=== PATIENT | male | born 1945 | race Caucasian/White ===

== ENCOUNTER 2018-04-01 11:52 | Inpatient (IN) | payer MEDICARE ==
[~2018-04-01] VITALS: Ht 172.7 cm; Wt 59.5 kg
[~2018-04-01 11:52] MED LIST: APIX5TAB PO; ATOR40TA78 PO; FURO20TA3 PO; METO25TA35 PO; RISP1TAB45 PO; SENNA/DOCUSATE TABLET PO SCH
[2018-04-01 12:38] VITALS: BP 127/75
[2018-04-01] MEDS ORDERED: POLYETHYLENE GLYCOL 17 GM PACKET NG PRN (14:00)
[2018-04-01] MEDS ORDERED: ONDANSETRON ODT 4 MG PO PRN (14:00)
[2018-04-01] MEDS ORDERED: DOCUSATE 100 MG CAPSULE PO PRN (14:00)
[2018-04-01] MEDS ORDERED: ALUMINUM/MAG/SIMETHICONE 30 ML UDC PO PRN (14:00)
[2018-04-01] MEDS ORDERED: ACETAMINOPHEN 325 MG TABLET PO PRN (14:00)
[2018-04-01] MEDS: METOPROLOL TARTRATE 25 MG TABLET PO SCH (18:09)
[2018-04-01 19:40] VITALS: BP 102/61
[2018-04-01] MEDS: APIXABAN 5 MG TABLET PO SCH (20:46)
[2018-04-01] MEDS: OLANZAPINE 2.5 MG TABLET PO SCH (20:46)
[2018-04-01] MEDS: ATORVASTATIN 40 MG TABLET PO SCH (20:46)
[2018-04-01] MEDS ORDERED: RISPERIDONE 1 MG TABLET PO SCH (21:00)
[2018-04-02] MEDS: METOPROLOL TARTRATE 25 MG TABLET PO SCH ×2 (05:59→18:02)
[2018-04-02 08:00] VITALS: BP 120/82
[2018-04-02] MEDS: APIXABAN 5 MG TABLET PO SCH ×2 (09:27→20:36)
[2018-04-02] MEDS: FUROSEMIDE 20 MG TABLET PO SCH (09:27)
[2018-04-02 19:33] VITALS: BP 92/63
[2018-04-02] MEDS: OLANZAPINE 2.5 MG TABLET PO SCH (20:34)
[2018-04-02] MEDS: ATORVASTATIN 40 MG TABLET PO SCH (20:34)
[2018-04-03 08:18] VITALS: BP 116/74
[2018-04-03] MEDS: APIXABAN 5 MG TABLET PO SCH (08:27)
[2018-04-03] MEDS: METOPROLOL TARTRATE 25 MG TABLET PO SCH ×2 (08:27→20:44)
[2018-04-03] MEDS: FUROSEMIDE 20 MG TABLET PO SCH (08:27)
[2018-04-03 20:00] VITALS: BP 105/64
[2018-04-03] MEDS: ATORVASTATIN 40 MG TABLET PO SCH (20:43)
[2018-04-03] MEDS ORDERED: OLANZAPINE 5 MG TABLET PO SCH (21:00)
[2018-04-04 07:30] VITALS: BP 98/58
[2018-04-04] MEDS: FUROSEMIDE 20 MG TABLET PO SCH (08:25)
[2018-04-04] MEDS: METOPROLOL TARTRATE 25 MG TABLET PO SCH ×2 (08:25→17:42)
[2018-04-04 19:49] VITALS: BP 101/55
[2018-04-04] MEDS: ATORVASTATIN 40 MG TABLET PO SCH (20:36)
[2018-04-04] MEDS: OLANZAPINE 10 MG TABLET PO SCH (20:36)
[2018-04-05 07:52] VITALS: BP 102/53
[2018-04-05] MEDS: METOPROLOL TARTRATE 25 MG TABLET PO SCH ×2 (08:27→20:15)
[2018-04-05] MEDS: FUROSEMIDE 20 MG TABLET PO SCH (08:27)
[2018-04-05 19:50] VITALS: BP 121/70
[2018-04-05] MEDS: ATORVASTATIN 40 MG TABLET PO SCH (20:15)
[2018-04-05] MEDS: OLANZAPINE 10 MG TABLET PO SCH (20:16)
[2018-04-06] MEDS: METOPROLOL TARTRATE 25 MG TABLET PO SCH ×2 (07:38→18:12)
[2018-04-06] MEDS: FUROSEMIDE 20 MG TABLET PO SCH (07:39)
[2018-04-06 07:52] VITALS: BP 107/67
[2018-04-06] MEDS ORDERED: FENTANYL PF 100 MCG/2ML ONE (11:41)
[2018-04-06] MEDS ORDERED: MIDAZOLAM 1 MG/ML, 2ML ONE (11:41)
[2018-04-06] MEDS ORDERED: CEFAZOLIN 1,000 MG ONE (11:41)
[2018-04-06] MEDS ORDERED: CEFAZOLIN PMX 1GM/50ML 50 ML ONE (11:41)
[2018-04-06] MEDS ORDERED: LIDOCAINE/PF 1%, 30ML ONE (11:42)
[2018-04-06 14:12] VITALS: BP 110/69
[2018-04-06 15:50] LABS: MICROSCOPIC NOT IND
[2018-04-06 16:03] LABS: CULTURE INDICATED? NO
[2018-04-06] MEDS: CEPHALEXIN 500 MG CAPSULE PO SCH ×2 (16:49→20:54)
[2018-04-06 18:06] VITALS: BP 143/85
[2018-04-06 19:42] VITALS: BP 86/43
[2018-04-06 19:59] VITALS: BP 127/70
[2018-04-06] MEDS: OLANZAPINE 10 MG TABLET PO SCH (20:53)
[2018-04-06] MEDS: ATORVASTATIN 40 MG TABLET PO SCH (20:54)
[2018-04-06] MEDS: HYDROcodone/APAP 5/325 TABLET PO PRN ×3 (21:01→23:01)
[2018-04-07] MEDS: METOPROLOL TARTRATE 25 MG TABLET PO SCH ×2 (06:01→18:01)
[2018-04-07 07:30] VITALS: BP 123/71
[2018-04-07] MEDS: FUROSEMIDE 20 MG TABLET PO SCH (09:03)
[2018-04-07] MEDS: HYDROcodone/APAP 5/325 TABLET PO PRN ×2 (09:03→21:32)
[2018-04-07] MEDS: CEPHALEXIN 500 MG CAPSULE PO SCH (09:03)
[2018-04-07 19:43] VITALS: BP 93/56
[2018-04-07] MEDS: OLANZAPINE 10 MG TABLET PO SCH (21:00)
[2018-04-07] MEDS: DIVALPROEX 250 MG TABLET.DR PO SCH (21:00)
[2018-04-07] MEDS: ATORVASTATIN 40 MG TABLET PO SCH (21:28)
[2018-04-08 07:59] VITALS: BP 148/82
[2018-04-08] MEDS: METOPROLOL TARTRATE 25 MG TABLET PO SCH ×2 (08:59→20:28)
[2018-04-08] MEDS: FUROSEMIDE 20 MG TABLET PO SCH (08:59)
[2018-04-08] MEDS: APIXABAN 5 MG TABLET PO SCH ×2 (10:39→20:27)
[2018-04-08 20:13] VITALS: BP 127/80
[2018-04-08] MEDS: DIVALPROEX 250 MG TABLET.DR PO SCH (20:27)
[2018-04-08] MEDS: ATORVASTATIN 40 MG TABLET PO SCH (20:27)
[2018-04-08] MEDS: OLANZAPINE 10 MG TABLET PO SCH (20:28)
[2018-04-09 07:57] VITALS: BP 122/67
[2018-04-09] MEDS: APIXABAN 5 MG TABLET PO SCH ×2 (08:44→20:37)
[2018-04-09] MEDS: FUROSEMIDE 20 MG TABLET PO SCH (08:44)
[2018-04-09] MEDS: METOPROLOL TARTRATE 25 MG TABLET PO SCH ×2 (08:45→20:37)
[2018-04-09 19:35] VITALS: BP 111/59
[2018-04-09] MEDS: OLANZAPINE 10 MG TABLET PO SCH (20:37)
[2018-04-09] MEDS: ATORVASTATIN 40 MG TABLET PO SCH (20:38)
[2018-04-09] MEDS: DIVALPROEX 250 MG TABLET.DR PO SCH (20:38)
[2018-04-10 07:30] VITALS: BP 98/65
[2018-04-10] MEDS: METOPROLOL TARTRATE 25 MG TABLET PO SCH ×2 (09:13→20:11)
[2018-04-10] MEDS: APIXABAN 5 MG TABLET PO SCH ×2 (09:13→20:10)
[2018-04-10] MEDS: FUROSEMIDE 20 MG TABLET PO SCH (09:14)
[2018-04-10 19:41] VITALS: BP 103/56
[2018-04-10] MEDS: ATORVASTATIN 40 MG TABLET PO SCH (20:10)
[2018-04-10] MEDS: DIVALPROEX 250 MG TABLET.DR PO SCH (20:10)
[2018-04-10] MEDS: OLANZAPINE 10 MG TABLET PO SCH (20:11)
[2018-04-11 08:42] VITALS: BP 127/82
[2018-04-11] MEDS: FUROSEMIDE 20 MG TABLET PO SCH (08:43)
[2018-04-11] MEDS: METOPROLOL TARTRATE 25 MG TABLET PO SCH ×2 (08:43→20:22)
[2018-04-11] MEDS: APIXABAN 5 MG TABLET PO SCH ×2 (08:43→20:21)
[2018-04-11 19:21] VITALS: BP 91/63
[2018-04-11] MEDS: ATORVASTATIN 40 MG TABLET PO SCH (20:21)
[2018-04-11] MEDS: DIVALPROEX 250 MG TABLET.DR PO SCH (20:22)
[2018-04-11] MEDS: OLANZAPINE 10 MG TABLET PO SCH (20:22)
[2018-04-12] MEDS: METOPROLOL TARTRATE 25 MG TABLET PO SCH ×2 (08:05→21:02)
[2018-04-12] MEDS: FUROSEMIDE 20 MG TABLET PO SCH (08:05)
[2018-04-12] MEDS: APIXABAN 5 MG TABLET PO SCH ×2 (08:05→21:02)
[2018-04-12 19:13] VITALS: BP 105/70
[2018-04-12] MEDS: DIVALPROEX 250 MG TABLET.DR PO SCH (21:01)
[2018-04-12] MEDS: OLANZAPINE 10 MG TABLET PO SCH (21:02)
[2018-04-12] MEDS: ATORVASTATIN 40 MG TABLET PO SCH (21:03)
[2018-04-13 07:16] VITALS: BP 116/74
[2018-04-13] MEDS: METOPROLOL TARTRATE 25 MG TABLET PO SCH ×2 (09:32→20:23)
[2018-04-13] MEDS: FUROSEMIDE 20 MG TABLET PO SCH (09:32)
[2018-04-13] MEDS: APIXABAN 5 MG TABLET PO SCH ×2 (09:32→20:22)
[2018-04-13 19:11] VITALS: BP 111/69
[2018-04-13] MEDS: DIVALPROEX 250 MG TABLET.DR PO SCH (20:22)
[2018-04-13] MEDS: ATORVASTATIN 40 MG TABLET PO SCH (20:22)
[2018-04-13] MEDS: OLANZAPINE 10 MG TABLET PO SCH (20:23)
[2018-04-14 07:30] VITALS: BP 124/72
[2018-04-14] MEDS: APIXABAN 5 MG TABLET PO SCH ×2 (08:34→20:58)
[2018-04-14] MEDS: FUROSEMIDE 20 MG TABLET PO SCH (08:35)
[2018-04-14] MEDS: METOPROLOL TARTRATE 25 MG TABLET PO SCH ×2 (08:35→21:00)
[2018-04-14 19:28] VITALS: BP 103/64
[2018-04-14] MEDS: DIVALPROEX 250 MG TABLET.DR PO SCH (20:58)
[2018-04-14] MEDS: OLANZAPINE 10 MG TABLET PO SCH (20:58)
[2018-04-14] MEDS: ATORVASTATIN 40 MG TABLET PO SCH (21:00)
[2018-04-15 07:40] VITALS: BP_SYST 107
[2018-04-15] MEDS: APIXABAN 5 MG TABLET PO SCH ×2 (08:53→20:50)
[2018-04-15] MEDS: METOPROLOL TARTRATE 25 MG TABLET PO SCH ×2 (08:53→20:51)
[2018-04-15] MEDS: FUROSEMIDE 20 MG TABLET PO SCH (08:54)
[2018-04-15 19:13] VITALS: BP 109/67
[2018-04-15] MEDS: DIVALPROEX 250 MG TABLET.DR PO SCH (20:49)
[2018-04-15] MEDS: ATORVASTATIN 40 MG TABLET PO SCH (20:50)
[2018-04-15] MEDS: OLANZAPINE 10 MG TABLET PO SCH (20:54)
[2018-04-16 07:30] VITALS: BP 135/83
[2018-04-16] MEDS: METOPROLOL TARTRATE 25 MG TABLET PO SCH ×2 (08:19→20:56)
[2018-04-16] MEDS: APIXABAN 5 MG TABLET PO SCH ×2 (08:19→20:56)
[2018-04-16] MEDS: FUROSEMIDE 20 MG TABLET PO SCH (08:19)
[2018-04-16 19:20] VITALS: BP 100/50
[2018-04-16] MEDS: OLANZAPINE 10 MG TABLET PO SCH (20:55)
[2018-04-16] MEDS: ATORVASTATIN 40 MG TABLET PO SCH (20:55)
[2018-04-16] MEDS: DIVALPROEX 250 MG TABLET.DR PO SCH (20:56)
[2018-04-17 07:30] VITALS: BP 137/71
[2018-04-17] MEDS: METOPROLOL TARTRATE 25 MG TABLET PO SCH ×2 (08:17→20:23)
[2018-04-17] MEDS: APIXABAN 5 MG TABLET PO SCH ×2 (08:17→20:23)
[2018-04-17] MEDS: FUROSEMIDE 20 MG TABLET PO SCH (08:17)
[2018-04-17 19:17] VITALS: BP 114/75
[2018-04-17] MEDS: OLANZAPINE 10 MG TABLET PO SCH (20:22)
[2018-04-17] MEDS: ATORVASTATIN 40 MG TABLET PO SCH (20:23)
[2018-04-17] MEDS: DIVALPROEX 250 MG TABLET.DR PO SCH (20:24)
[2018-04-18 07:30] VITALS: BP 118/78
[2018-04-18] MEDS: APIXABAN 5 MG TABLET PO SCH ×2 (08:25→20:20)
[2018-04-18] MEDS: METOPROLOL TARTRATE 25 MG TABLET PO SCH ×2 (08:26→20:28)
[2018-04-18] MEDS: FUROSEMIDE 20 MG TABLET PO SCH (08:26)
[2018-04-18 19:13] VITALS: BP 89/63
[2018-04-18] MEDS: DIVALPROEX 250 MG TABLET.DR PO SCH (20:19)
[2018-04-18] MEDS: ATORVASTATIN 40 MG TABLET PO SCH (20:19)
[2018-04-18] MEDS: OLANZAPINE 10 MG TABLET PO SCH (20:20)
[2018-04-19 07:50] VITALS: BP 130/85
[2018-04-19] MEDS: APIXABAN 5 MG TABLET PO SCH ×2 (08:31→20:57)
[2018-04-19] MEDS: METOPROLOL TARTRATE 25 MG TABLET PO SCH ×2 (08:32→20:57)
[2018-04-19] MEDS: FUROSEMIDE 20 MG TABLET PO SCH (08:32)
[2018-04-19 19:27] VITALS: BP 111/77
[2018-04-19] MEDS: DIVALPROEX 250 MG TABLET.DR PO SCH (20:56)
[2018-04-19] MEDS: ATORVASTATIN 40 MG TABLET PO SCH (20:57)
[2018-04-19] MEDS: OLANZAPINE 10 MG TABLET PO SCH (20:57)
[2018-04-20 07:39] VITALS: BP 130/85
[2018-04-20] MEDS: FUROSEMIDE 20 MG TABLET PO SCH (08:06)
[2018-04-20] MEDS: METOPROLOL TARTRATE 25 MG TABLET PO SCH ×2 (08:06→21:16)
[2018-04-20] MEDS: APIXABAN 5 MG TABLET PO SCH ×2 (08:06→21:15)
[2018-04-20 19:05] VITALS: BP 106/70
[2018-04-20] MEDS: OLANZAPINE 10 MG TABLET PO SCH (21:15)
[2018-04-20] MEDS: DIVALPROEX 250 MG TABLET.DR PO SCH (21:16)
[2018-04-20] MEDS: ATORVASTATIN 40 MG TABLET PO SCH (21:16)
[2018-04-21 07:43] VITALS: BP 93/56
[2018-04-21] MEDS: APIXABAN 5 MG TABLET PO SCH ×2 (09:27→20:46)
[2018-04-21] MEDS: FUROSEMIDE 20 MG TABLET PO SCH (09:27)
[2018-04-21] MEDS: METOPROLOL TARTRATE 25 MG TABLET PO SCH ×2 (09:28→20:47)
[2018-04-21] MEDS: OLANZAPINE 5 MG TABLET PO SCH (11:45)
[2018-04-21 19:16] VITALS: BP 100/61
[2018-04-21] MEDS: ATORVASTATIN 40 MG TABLET PO SCH (20:46)
[2018-04-21] MEDS: OLANZAPINE 10 MG TABLET PO SCH (20:46)
[2018-04-21] MEDS: DIVALPROEX 250 MG TABLET.DR PO SCH (20:46)
[2018-04-22 07:21] VITALS: BP 124/81
[2018-04-22] MEDS: METOPROLOL TARTRATE 25 MG TABLET PO SCH ×2 (08:16→20:36)
[2018-04-22] MEDS: APIXABAN 5 MG TABLET PO SCH ×2 (08:16→20:36)
[2018-04-22] MEDS: FUROSEMIDE 20 MG TABLET PO SCH (08:16)
[2018-04-22] MEDS: OLANZAPINE 5 MG TABLET PO SCH (11:29)
[2018-04-22 19:14] VITALS: BP 128/77
[2018-04-22] MEDS: ATORVASTATIN 40 MG TABLET PO SCH (20:35)
[2018-04-22] MEDS: DIVALPROEX 250 MG TABLET.DR PO SCH (20:36)
[2018-04-22] MEDS: OLANZAPINE 10 MG TABLET PO SCH (20:36)
[2018-04-23 07:31] VITALS: BP 130/79
[2018-04-23] MEDS: METOPROLOL TARTRATE 25 MG TABLET PO SCH ×2 (08:39→20:13)
[2018-04-23] MEDS: APIXABAN 5 MG TABLET PO SCH ×2 (08:40→20:18)
[2018-04-23] MEDS: FUROSEMIDE 20 MG TABLET PO SCH (08:40)
[2018-04-23] MEDS: OLANZAPINE 5 MG TABLET PO SCH (12:22)
[2018-04-23 19:23] VITALS: BP 119/70
[2018-04-23] MEDS: DIVALPROEX 250 MG TABLET.DR PO SCH (20:18)
[2018-04-23] MEDS: ATORVASTATIN 40 MG TABLET PO SCH (20:18)
[2018-04-23] MEDS: OLANZAPINE 10 MG TABLET PO SCH (20:18)
[2018-04-24 07:38] VITALS: BP 123/70
[2018-04-24] MEDS: FUROSEMIDE 20 MG TABLET PO SCH (09:15)
[2018-04-24] MEDS: APIXABAN 5 MG TABLET PO SCH ×2 (09:16→20:24)
[2018-04-24] MEDS: METOPROLOL TARTRATE 25 MG TABLET PO SCH ×2 (09:16→20:25)
[2018-04-24] MEDS: OLANZAPINE 5 MG TABLET PO SCH (12:07)
[2018-04-24 19:25] VITALS: BP 116/57
[2018-04-24] MEDS: OLANZAPINE 10 MG TABLET PO SCH (20:24)
[2018-04-24] MEDS: DIVALPROEX 250 MG TABLET.DR PO SCH (20:24)
[2018-04-24] MEDS: ATORVASTATIN 40 MG TABLET PO SCH (20:24)
[2018-04-25 07:46] VITALS: BP 100/60
[2018-04-25] MEDS: APIXABAN 5 MG TABLET PO SCH ×2 (08:30→20:47)
[2018-04-25] MEDS: METOPROLOL TARTRATE 25 MG TABLET PO SCH ×2 (08:31→20:47)
[2018-04-25] MEDS: FUROSEMIDE 20 MG TABLET PO SCH (08:31)
[2018-04-25] MEDS: OLANZAPINE 5 MG TABLET PO SCH (13:38)
[2018-04-25 19:38] VITALS: BP 112/75
[2018-04-25] MEDS: OLANZAPINE 10 MG TABLET PO SCH (20:47)
[2018-04-25] MEDS: ATORVASTATIN 40 MG TABLET PO SCH (20:48)
[2018-04-25] MEDS: DIVALPROEX 250 MG TABLET.DR PO SCH (20:48)
[2018-04-26 07:34] VITALS: BP 114/70
[2018-04-26] MEDS: FUROSEMIDE 20 MG TABLET PO SCH (08:26)
[2018-04-26] MEDS: METOPROLOL TARTRATE 25 MG TABLET PO SCH ×2 (08:27→21:24)
[2018-04-26] MEDS: APIXABAN 5 MG TABLET PO SCH ×2 (08:27→21:22)
[2018-04-26] MEDS: OLANZAPINE 5 MG TABLET PO SCH (12:58)
[2018-04-26 19:40] VITALS: BP 125/67
[2018-04-26] MEDS: DIVALPROEX 250 MG TABLET.DR PO SCH (21:22)
[2018-04-26] MEDS: OLANZAPINE 10 MG TABLET PO SCH (21:23)
[2018-04-26] MEDS: ATORVASTATIN 40 MG TABLET PO SCH (21:23)
[2018-04-27 07:58] VITALS: BP 107/73
[2018-04-27] MEDS: APIXABAN 5 MG TABLET PO SCH ×2 (08:36→20:41)
[2018-04-27] MEDS: METOPROLOL TARTRATE 25 MG TABLET PO SCH ×2 (08:36→20:42)
[2018-04-27] MEDS: FUROSEMIDE 20 MG TABLET PO SCH (08:36)
[2018-04-27] MEDS: OLANZAPINE 5 MG TABLET PO SCH (11:38)
[2018-04-27 19:31] VITALS: BP 124/86
[2018-04-27] MEDS: OLANZAPINE 10 MG TABLET PO SCH (20:41)
[2018-04-27] MEDS: DIVALPROEX 250 MG TABLET.DR PO SCH (20:41)
[2018-04-27] MEDS: ATORVASTATIN 40 MG TABLET PO SCH (20:42)
[2018-04-28 07:44] VITALS: BP 126/80
[2018-04-28] MEDS: FUROSEMIDE 20 MG TABLET PO SCH (09:46)
[2018-04-28] MEDS: VENLAFAXINE 75 MG CAP ER PO SCH (09:46)
[2018-04-28] MEDS: METOPROLOL TARTRATE 25 MG TABLET PO SCH ×2 (09:46→20:08)
[2018-04-28] MEDS: APIXABAN 5 MG TABLET PO SCH ×2 (09:46→20:08)
[2018-04-28] MEDS: OLANZAPINE 5 MG TABLET PO SCH (12:47)
[2018-04-28 20:02] VITALS: BP 119/80
[2018-04-28] MEDS: OLANZAPINE 10 MG TABLET PO SCH (20:08)
[2018-04-28] MEDS: DIVALPROEX 250 MG TABLET.DR PO SCH (20:08)
[2018-04-28] MEDS: ATORVASTATIN 40 MG TABLET PO SCH (20:08)
[2018-04-29 08:03] VITALS: BP 122/77
[2018-04-29] MEDS: METOPROLOL TARTRATE 25 MG TABLET PO SCH ×2 (09:03→20:21)
[2018-04-29] MEDS: APIXABAN 5 MG TABLET PO SCH ×2 (09:03→20:22)
[2018-04-29] MEDS: VENLAFAXINE 75 MG CAP ER PO SCH (09:03)
[2018-04-29] MEDS: FUROSEMIDE 20 MG TABLET PO SCH (09:03)
[2018-04-29] MEDS: OLANZAPINE 5 MG TABLET PO SCH (13:50)
[2018-04-29] MEDS: ATORVASTATIN 40 MG TABLET PO SCH (20:21)
[2018-04-29] MEDS: DIVALPROEX 250 MG TABLET.DR PO SCH (20:21)
[2018-04-29] MEDS: MELATONIN 3 MG TABLET PO SCH (20:22)
[2018-04-29] MEDS: OLANZAPINE 10 MG TABLET PO SCH (20:22)
[2018-04-29 20:26] VITALS: BP 123/87
[2018-04-30 07:29] VITALS: BP 129/79
[2018-04-30] MEDS: VENLAFAXINE 75 MG CAP ER PO SCH (09:15)
[2018-04-30] MEDS: FUROSEMIDE 20 MG TABLET PO SCH (09:16)
[2018-04-30] MEDS: METOPROLOL TARTRATE 25 MG TABLET PO SCH ×2 (09:16→20:39)
[2018-04-30] MEDS: APIXABAN 5 MG TABLET PO SCH ×2 (09:16→20:37)
[2018-04-30] MEDS: OLANZAPINE 5 MG TABLET PO SCH (12:04)
[2018-04-30] MEDS: OLANZAPINE 10 MG TABLET PO SCH (20:37)
[2018-04-30] MEDS: ATORVASTATIN 40 MG TABLET PO SCH (20:37)
[2018-04-30] MEDS: DIVALPROEX 250 MG TABLET.DR PO SCH (20:37)
[2018-04-30] MEDS: MELATONIN 3 MG TABLET PO SCH (20:37)
[2018-04-30 20:42] VITALS: BP 119/72
[2018-05-01 08:04] VITALS: BP 122/77
[2018-05-01] MEDS: APIXABAN 5 MG TABLET PO SCH ×2 (09:00→09:15)
[2018-05-01] MEDS: METOPROLOL TARTRATE 25 MG TABLET PO SCH ×2 (09:15→20:39)
[2018-05-01] MEDS: FUROSEMIDE 20 MG TABLET PO SCH (09:15)
[2018-05-01] MEDS: VENLAFAXINE 75 MG CAP ER PO SCH (09:16)
[2018-05-01] MEDS: OLANZAPINE 5 MG TABLET PO SCH (12:16)
[2018-05-01 19:24] VITALS: BP 99/63
[2018-05-01] MEDS: MELATONIN 3 MG TABLET PO SCH (20:38)
[2018-05-01] MEDS: ATORVASTATIN 40 MG TABLET PO SCH (20:39)
[2018-05-01] MEDS: OLANZAPINE 10 MG TABLET PO SCH (20:39)
[2018-05-01] MEDS: DIVALPROEX 250 MG TABLET.DR PO SCH (20:39)
[2018-05-02 07:48] VITALS: BP 106/71
[2018-05-02] MEDS: VENLAFAXINE 75 MG CAP ER PO SCH (09:15)
[2018-05-02] MEDS: METOPROLOL TARTRATE 25 MG TABLET PO SCH ×2 (09:16→20:14)
[2018-05-02] MEDS: APIXABAN 5 MG TABLET PO SCH ×2 (09:16→20:14)
[2018-05-02] MEDS: FUROSEMIDE 20 MG TABLET PO SCH (09:16)
[2018-05-02] MEDS: OLANZAPINE 5 MG TABLET PO SCH (12:06)
[2018-05-02 19:23] VITALS: BP 105/60
[2018-05-02] MEDS: DIVALPROEX 250 MG TABLET.DR PO SCH (20:13)
[2018-05-02] MEDS: ATORVASTATIN 40 MG TABLET PO SCH (20:13)
[2018-05-02] MEDS: MELATONIN 3 MG TABLET PO SCH (20:13)
[2018-05-02] MEDS: OLANZAPINE 10 MG TABLET PO SCH (20:14)
[2018-05-03 07:48] VITALS: BP 125/76
[2018-05-03] MEDS: FUROSEMIDE 20 MG TABLET PO SCH (09:39)
[2018-05-03] MEDS: APIXABAN 5 MG TABLET PO SCH ×2 (09:40→20:19)
[2018-05-03] MEDS: METOPROLOL TARTRATE 25 MG TABLET PO SCH ×2 (09:40→20:18)
[2018-05-03] MEDS: VENLAFAXINE 75 MG CAP ER PO SCH (09:40)
[2018-05-03] MEDS: OLANZAPINE 5 MG TABLET PO SCH (12:55)
[2018-05-03 19:58] VITALS: BP 101/61
[2018-05-03] MEDS: DIVALPROEX 250 MG TABLET.DR PO SCH (20:19)
[2018-05-03] MEDS: MELATONIN 3 MG TABLET PO SCH (20:19)
[2018-05-03] MEDS: OLANZAPINE 10 MG TABLET PO SCH (20:19)
[2018-05-03] MEDS: ATORVASTATIN 40 MG TABLET PO SCH (20:19)
[2018-05-04 08:21] VITALS: BP 112/64
[2018-05-04] MEDS: METOPROLOL TARTRATE 25 MG TABLET PO SCH ×2 (08:48→20:39)
[2018-05-04] MEDS: FUROSEMIDE 20 MG TABLET PO SCH (08:48)
[2018-05-04] MEDS: APIXABAN 5 MG TABLET PO SCH ×2 (08:48→20:38)
[2018-05-04] MEDS: VENLAFAXINE 75 MG CAP ER PO SCH (08:48)
[2018-05-04] MEDS: OLANZAPINE 5 MG TABLET PO SCH (12:32)
[2018-05-04 19:45] VITALS: BP_SYST 108; BP_SYST 95; BP_DIAS 58; BP_DIAS 65
[2018-05-04] MEDS: DIVALPROEX 250 MG TABLET.DR PO SCH (20:37)
[2018-05-04] MEDS: ATORVASTATIN 40 MG TABLET PO SCH (20:38)
[2018-05-04] MEDS: OLANZAPINE 10 MG TABLET PO SCH (20:39)
[2018-05-04] MEDS: MELATONIN 3 MG TABLET PO SCH (20:39)
[2018-05-05 07:49] VITALS: BP 129/86
[2018-05-05] MEDS: FUROSEMIDE 20 MG TABLET PO SCH (08:11)
[2018-05-05] MEDS: VENLAFAXINE 75 MG CAP ER PO SCH (08:11)
[2018-05-05] MEDS: METOPROLOL TARTRATE 25 MG TABLET PO SCH ×2 (08:11→21:00)
[2018-05-05] MEDS: APIXABAN 5 MG TABLET PO SCH ×2 (08:11→21:00)
[2018-05-05] MEDS: OLANZAPINE 5 MG TABLET PO SCH (11:58)
[2018-05-05 19:38] VITALS: BP 112/72
[2018-05-05] MEDS: DIVALPROEX 250 MG TABLET.DR PO SCH (21:00)
[2018-05-05] MEDS: ATORVASTATIN 40 MG TABLET PO SCH (21:00)
[2018-05-05] MEDS: OLANZAPINE 10 MG TABLET PO SCH (21:00)
[2018-05-05] MEDS: MELATONIN 3 MG TABLET PO SCH (21:00)
[2018-05-06 07:35] VITALS: BP 121/70
[2018-05-06] MEDS: METOPROLOL TARTRATE 25 MG TABLET PO SCH ×2 (08:39→21:20)
[2018-05-06] MEDS: VENLAFAXINE 75 MG CAP ER PO SCH (08:39)
[2018-05-06] MEDS: FUROSEMIDE 20 MG TABLET PO SCH (08:39)
[2018-05-06] MEDS: APIXABAN 5 MG TABLET PO SCH ×2 (08:39→21:19)
[2018-05-06] MEDS: OLANZAPINE 5 MG TABLET PO SCH (11:34)
[2018-05-06 19:52] VITALS: BP 112/71
[2018-05-06] MEDS: DIVALPROEX 250 MG TABLET.DR PO SCH (21:19)
[2018-05-06] MEDS: ATORVASTATIN 40 MG TABLET PO SCH (21:19)
[2018-05-06] MEDS: OLANZAPINE 10 MG TABLET PO SCH (21:20)
[2018-05-06] MEDS: MELATONIN 3 MG TABLET PO SCH (21:20)
[2018-05-07 07:35] VITALS: BP 122/88
[2018-05-07] MEDS: VENLAFAXINE 75 MG CAP ER PO SCH (08:43)
[2018-05-07] MEDS: FUROSEMIDE 20 MG TABLET PO SCH (08:43)
[2018-05-07] MEDS: APIXABAN 5 MG TABLET PO SCH ×2 (08:43→20:17)
[2018-05-07] MEDS: METOPROLOL TARTRATE 25 MG TABLET PO SCH ×2 (08:44→20:17)
[2018-05-07] MEDS: OLANZAPINE 5 MG TABLET PO SCH (12:12)
[2018-05-07 19:35] VITALS: BP 115/69
[2018-05-07] MEDS: OLANZAPINE 10 MG TABLET PO SCH (20:16)
[2018-05-07] MEDS: ATORVASTATIN 40 MG TABLET PO SCH (20:16)
[2018-05-07] MEDS: MELATONIN 3 MG TABLET PO SCH (20:17)
[2018-05-07] MEDS: DIVALPROEX 250 MG TABLET.DR PO SCH (20:17)
[2018-05-08 07:15] VITALS: BP 133/82
[2018-05-08] MEDS: VENLAFAXINE 75 MG CAP ER PO SCH (09:12)
[2018-05-08] MEDS: APIXABAN 5 MG TABLET PO SCH ×2 (09:12→20:40)
[2018-05-08] MEDS: FUROSEMIDE 20 MG TABLET PO SCH (09:13)
[2018-05-08] MEDS: METOPROLOL TARTRATE 25 MG TABLET PO SCH ×2 (09:13→20:41)
[2018-05-08] MEDS: OLANZAPINE 5 MG TABLET PO SCH (11:49)
[2018-05-08 19:31] VITALS: BP 118/65
[2018-05-08] MEDS: DIVALPROEX 250 MG TABLET.DR PO SCH (20:40)
[2018-05-08] MEDS: ATORVASTATIN 40 MG TABLET PO SCH (20:40)
[2018-05-08] MEDS: OLANZAPINE 10 MG TABLET PO SCH (20:42)
[2018-05-08] MEDS: MELATONIN 3 MG TABLET PO SCH (20:42)
[2018-05-09 07:42] VITALS: BP 131/72
[2018-05-09] MEDS: FUROSEMIDE 20 MG TABLET PO SCH (08:27)
[2018-05-09] MEDS: APIXABAN 5 MG TABLET PO SCH ×2 (08:28→20:31)
[2018-05-09] MEDS: VENLAFAXINE 75 MG CAP ER PO SCH (08:28)
[2018-05-09] MEDS: METOPROLOL TARTRATE 25 MG TABLET PO SCH ×2 (08:28→20:32)
[2018-05-09] MEDS: OLANZAPINE 5 MG TABLET PO SCH (12:10)
[2018-05-09 20:06] VITALS: BP 121/75
[2018-05-09] MEDS: DIVALPROEX 250 MG TABLET.DR PO SCH (20:31)
[2018-05-09] MEDS: ATORVASTATIN 40 MG TABLET PO SCH (20:31)
[2018-05-09] MEDS: MELATONIN 3 MG TABLET PO SCH (20:31)
[2018-05-09] MEDS: OLANZAPINE 10 MG TABLET PO SCH (20:31)
[2018-05-10 08:33] VITALS: BP 112/76
[2018-05-10] MEDS: FUROSEMIDE 20 MG TABLET PO SCH (08:51)
[2018-05-10] MEDS: METOPROLOL TARTRATE 25 MG TABLET PO SCH ×2 (08:53→20:08)
[2018-05-10] MEDS: APIXABAN 5 MG TABLET PO SCH ×2 (08:53→20:08)
[2018-05-10] MEDS: VENLAFAXINE 75 MG CAP ER PO SCH (08:53)
[2018-05-10] MEDS: OLANZAPINE 5 MG TABLET PO SCH (12:21)
[2018-05-10 19:20] VITALS: BP 113/71
[2018-05-10] MEDS: OLANZAPINE 10 MG TABLET PO SCH (20:07)
[2018-05-10] MEDS: DIVALPROEX 250 MG TABLET.DR PO SCH (20:08)
[2018-05-10] MEDS: ATORVASTATIN 40 MG TABLET PO SCH (20:08)
[2018-05-10] MEDS: MELATONIN 3 MG TABLET PO SCH (20:08)
[2018-05-11 07:19] VITALS: BP_SYST 124; BP_SYST 99; BP_DIAS 62; BP_DIAS 76
[2018-05-11] MEDS: APIXABAN 5 MG TABLET PO SCH ×2 (08:31→20:12)
[2018-05-11] MEDS: VENLAFAXINE 75 MG CAP ER PO SCH (08:31)
[2018-05-11] MEDS: FUROSEMIDE 20 MG TABLET PO SCH (08:31)
[2018-05-11] MEDS: METOPROLOL TARTRATE 25 MG TABLET PO SCH ×2 (08:32→21:00)
[2018-05-11 08:37] VITALS: BP 101/65
[2018-05-11] MEDS: OLANZAPINE 5 MG TABLET PO SCH (11:06)
[2018-05-11 19:23] VITALS: BP 114/78
[2018-05-11] MEDS: OLANZAPINE 10 MG TABLET PO SCH (20:12)
[2018-05-11] MEDS: DIVALPROEX 250 MG TABLET.DR PO SCH (20:12)
[2018-05-11] MEDS: MELATONIN 3 MG TABLET PO SCH (20:12)
[2018-05-11] MEDS: ATORVASTATIN 40 MG TABLET PO SCH (20:12)
[2018-05-12 07:33] VITALS: BP 106/69
[2018-05-12] MEDS: VENLAFAXINE 75 MG CAP ER PO SCH (07:58)
[2018-05-12] MEDS: FUROSEMIDE 20 MG TABLET PO SCH (07:59)
[2018-05-12] MEDS: APIXABAN 5 MG TABLET PO SCH ×2 (07:59→21:18)
[2018-05-12] MEDS: METOPROLOL TARTRATE 25 MG TABLET PO SCH ×2 (08:00→21:19)
[2018-05-12] MEDS: OLANZAPINE 5 MG TABLET PO SCH (11:14)
[2018-05-12 19:39] VITALS: BP 99/67
[2018-05-12] MEDS: OLANZAPINE 10 MG TABLET PO SCH (21:18)
[2018-05-12] MEDS: DIVALPROEX 250 MG TABLET.DR PO SCH (21:18)
[2018-05-12] MEDS: MELATONIN 3 MG TABLET PO SCH (21:18)
[2018-05-12] MEDS: ATORVASTATIN 40 MG TABLET PO SCH (21:19)
[2018-05-13 07:35] VITALS: BP 114/72
[2018-05-13] MEDS: VENLAFAXINE 75 MG CAP ER PO SCH (08:51)
[2018-05-13] MEDS: METOPROLOL TARTRATE 25 MG TABLET PO SCH ×2 (08:51→21:22)
[2018-05-13] MEDS: FUROSEMIDE 20 MG TABLET PO SCH (08:51)
[2018-05-13] MEDS: APIXABAN 5 MG TABLET PO SCH ×2 (08:51→21:21)
[2018-05-13] MEDS: OLANZAPINE 5 MG TABLET PO SCH (12:11)
[2018-05-13 19:35] VITALS: BP 102/66
[2018-05-13] MEDS: OLANZAPINE 10 MG TABLET PO SCH (21:21)
[2018-05-13] MEDS: DIVALPROEX 250 MG TABLET.DR PO SCH (21:21)
[2018-05-13] MEDS: MELATONIN 3 MG TABLET PO SCH (21:21)
[2018-05-13] MEDS: ATORVASTATIN 40 MG TABLET PO SCH (21:21)
[2018-05-14 07:50] VITALS: BP 115/66
[2018-05-14] MEDS: VENLAFAXINE 75 MG CAP ER PO SCH (09:32)
[2018-05-14] MEDS: FUROSEMIDE 20 MG TABLET PO SCH (09:32)
[2018-05-14] MEDS: APIXABAN 5 MG TABLET PO SCH ×2 (09:32→21:37)
[2018-05-14] MEDS: METOPROLOL TARTRATE 25 MG TABLET PO SCH ×2 (09:33→21:00)
[2018-05-14] MEDS: OLANZAPINE 5 MG TABLET PO SCH (12:40)
[2018-05-14] MEDS ORDERED: ATOR40TA78 PO (15:12)
[2018-05-14] MEDS ORDERED: APIX5TAB PO (15:12)
[2018-05-14] MEDS ORDERED: DIVA-59 PO (15:12)
[2018-05-14] MEDS ORDERED: OLAN5TAB9 PO (15:12)
[2018-05-14] MEDS ORDERED: OLAN10TA9 PO (15:12)
[2018-05-14] MEDS ORDERED: VENL75CA6 PO (15:12)
[2018-05-14] MEDS ORDERED: MELA3TAB2 PO (15:12)
[2018-05-14] MEDS ORDERED: FURO20TA3 PO (15:12)
[2018-05-14] MEDS ORDERED: METO25TA35 PO (15:12)
[2018-05-14 19:21] VITALS: BP 104/58
[2018-05-14] MEDS: OLANZAPINE 10 MG TABLET PO SCH (21:37)
[2018-05-14] MEDS: MELATONIN 3 MG TABLET PO SCH (21:37)
[2018-05-14] MEDS: ATORVASTATIN 40 MG TABLET PO SCH (21:37)
[2018-05-14] MEDS: DIVALPROEX 250 MG TABLET.DR PO SCH (21:37)
[2018-05-15 07:47] VITALS: BP 132/77
[2018-05-15] MEDS: VENLAFAXINE 75 MG CAP ER PO SCH (08:19)
[2018-05-15] MEDS: METOPROLOL TARTRATE 25 MG TABLET PO SCH (08:20)
[2018-05-15] MEDS: APIXABAN 5 MG TABLET PO SCH (08:20)
[2018-05-15] MEDS: FUROSEMIDE 20 MG TABLET PO SCH (08:20)
== END 2018-05-15 10:30 | DRG 885 ==
LOC: 3E 11:52
PROVIDERS: ADMIT Psychiatry & Neurology Psychosomatic Medicine; ATTEND Psychiatry & Neurology Psychosomatic Medicine
PROC: 0JC60ZZ Extirpation of Matter from Chest Subcutaneous Tissue and Fascia, Open Approach (ICD-10-PCS; principal; 2018-04-06)
DX: F20.0 Paranoid schizophrenia (principal); I97.638 Postprocedural hematoma of a circulatory system organ or structure following other circulatory system procedure; D68.69 Other thrombophilia; I50.22 Chronic systolic (congestive) heart failure; I42.9 Cardiomyopathy, unspecified; I97.89 Other postprocedural complications and disorders of the circulatory system, not elsewhere classified; F17.200 Nicotine dependence, unspecified, uncomplicated; F03.90 Unspecified dementia, unspecified severity, without behavioral disturbance, psychotic disturbance, mood disturbance, and anxiety; F17.210 Nicotine dependence, cigarettes, uncomplicated; D75.89 Other specified diseases of blood and blood-forming organs; T45.515A Adverse effect of anticoagulants, initial encounter; I48.91 Unspecified atrial fibrillation; F09 Unspecified mental disorder due to known physiological condition; G47.00 Insomnia, unspecified; I11.0 Hypertensive heart disease with heart failure; Y83.1 Surgical operation with implant of artificial internal device as the cause of abnormal reaction of the patient, or of later complication, without mention of misadventure at the time of the procedure; Z76.5 Malingerer [conscious simulation]; Z82.49 Family history of ischemic heart disease and other diseases of the circulatory system; Z91.81 History of falling; Z86.73 Personal history of transient ischemic attack (TIA), and cerebral infarction without residual deficits; Z95.0 Presence of cardiac pacemaker; Y92.89 Other specified places as the place of occurrence of the external cause; I49.5 Sick sinus syndrome
CPT/HCPCS: 10140; 81003; 99156; J0690; J2250; J3010; J3490; 92523-GN

== ENCOUNTER 2018-05-15 17:47 | Emergency (ER) | payer MEDICARE ==
[~2018-05-15] VITALS: Ht 172.7 cm; Wt 75.0 kg
[~2018-05-15 17:47] MED LIST changes: +DIVA-59 PO; +MELA3TAB2 PO; +OLAN10TA9 PO; +OLAN5TAB9 PO; -SENNA/DOCUSATE TABLET PO SCH; +VENL75CA6 PO
[2018-05-15 18:37] LABS: BASOPHILS # (AUTO) 0.04 x10^3/uL (0-0.1); BASOPHILS % (AUTO) 0 % (0-1); EOSINOPHILS # (AUTO) 0.23 x10^3/uL (0-0.4); EOSINOPHILS % (AUTO) 2 % (1-7); LYMPHOCYTES # (AUTO) 1.43 x10^3/uL (1-3.4); LYMPHOCYTES % (AUTO) 12 % (22-44); MD NO; MEAN CORPUSCULAR HEMOGLOBIN 33.3 pg (27.5-34.5); MEAN CORPUSCULAR HGB CONC 34.6 g/dL (33.2-36.2); MEAN CORPUSCULAR VOLUME 96.3 fL (81-97); MEAN PLATELET VOLUME 7.7 fL (7.4-10.4); MONOCYTES # (AUTO) 0.75 x10^3/uL (0.2-0.8); MONOCYTES % (AUTO) 6 % (2-9); NEUTROPHILS # (AUTO) 9.82 x10^3/uL (1.8-6.8); NEUTROPHILS % (AUTO) 80 % (42-75); PLATELET COUNT 157 x10^3/uL (130-400); RED BLOOD COUNT 4.05 x10^6/uL (4.38-5.82); RED CELL DISTRIBUTION WIDTH 14.3 % (9.4-14.8)
[2018-05-15 18:47] LABS: INTERNATIONAL NORMALIZED RATIO 1.02 (0.93-1.1); PROTHROMBIN TIME 10.8 Seconds (9.6-11.5)
[2018-05-15 18:49] VITALS: BP 125/65
[2018-05-15 18:49] LABS: ALANINE AMINOTRANSFERASE 36 U/L (12-78); ALBUMIN 3.6 g/dL (3.4-5.0); ANION GAP 10 mmol/L (5-15); CALCIUM 8.1 mg/dL (8.5-10.1); CHLORIDE 101 mmol/L (98-107); CREATININE 1.18 mg/dL (0.7-1.3)
[2018-05-15 18:51] LABS: ALKALINE PHOSPHATASE 84 U/L (45-117); BILIRUBIN,TOTAL 0.7 mg/dL (0.2-1.0); TOTAL PROTEIN 7.1 g/dL (6.4-8.2)
[2018-05-15 18:53] LABS: ACETAMINOPHEN < 2 mcg/mL (10-30); SALICYLATE LEVEL < 1.7 mg/dL (2.8-20.0)
== END 2018-05-15 19:59 | disposition left against medical advice (07) ==
LOC: ED 19:53
DX: F19.150 Other psychoactive substance abuse with psychoactive substance-induced psychotic disorder with delusions (principal); F10.10 Alcohol abuse, uncomplicated; F10.129 Alcohol abuse with intoxication, unspecified; R51 Headache; F20.9 Schizophrenia, unspecified; I48.91 Unspecified atrial fibrillation; Z86.73 Personal history of transient ischemic attack (TIA), and cerebral infarction without residual deficits
CPT/HCPCS: 36415; 70450; 71045; 80053; 80307; 80329; 82140; 85025; 85610; 85730; 93005; 99284; G0480